=== PATIENT | female | born 2000 | race American Indian/Alaskan Native ===

== ENCOUNTER 2019-04-30 14:53 | Emergency (ER) | payer SELFPAY ==
[2019-04-30 15:36] VITALS: BP 104/75
[2019-04-30] MEDS ORDERED: ONDANSETRON 4 MG ODT TAB ONE (16:18)
--- NOTE | 2019-04-30 16:18 | Event Note ---
ED Screening Note Date of service: 04/30/18 Time: 16:12 ED Screening Note: Pt complains of dizziness, chest pain, and weakness x 1 week hx of DVT, not currently on blood thinners denies recent long travel +LLE tenderness LMP 04/16/19 +N/V This initial assessment/diagnostic orders/clinical plan/treatment(s) is/are subject to change based on patients health status, clinical progression and re- assessment by fellow clinical providers in the ED. Further treatment and workup at subsequent clinical providers discretion. Patient/guardian urged not to elope from the ED as their condition may be serious if not clinically assessed and managed. Initial orders include: labs CXR meds
[2019-04-30 17:06] LABS: Hematocrit 36.8 % (30.3-42.9); Hemoglobin 12.1 gm/dl (10.1-14.3); Mean Corpuscular HGB Conc 33 % (30-34); Mean Corpuscular Volume 84 fl (79-97); Platelet Count 198 K/mm3 (140-440); Red Blood Count 4.37 M/mm3 (3.65-5.03); Red Cell Distribution Width 14.3 % (13.2-15.2)
[2019-04-30 17:15] LABS: Alanine Aminotransferase 8 units/L (7-56); Albumin 4.6 g/dL (3.9-5); BUN/Creatinine Ratio 10; Blood Urea Nitrogen 7 mg/dL (7-17); Calcium 9.3 mg/dL (8.4-10.2); Hemolysis Index 9
--- NOTE | 2019-04-30 18:49 | XRay Report ---
CHEST 2 VIEWS INDICATION / CLINICAL INFORMATION: chest pain, SOB. COMPARISON: None available. FINDINGS: SUPPORT DEVICES: None. HEART / MEDIASTINUM: No significant abnormality. LUNGS / PLEURA: No significant pulmonary or pleural abnormality. .No pneumothorax. ADDITIONAL FINDINGS: No significant additional findings. IMPRESSION: 1. No acute findings. Signer Name: Tam Da Silva MD Signed: 04/30/2019 6:45 PM Workstation Name: [id number]
[2019-04-30] MEDS ORDERED: KETOROLAC 30 MG/1 ML INJ IV ONE (19:31)
[2019-04-30] MEDS ORDERED: ONDANSETRON 4 MG/2 ML INJ IV ONE (19:31)
--- NOTE | 2019-04-30 20:32 | Emergency Department Report ---
ED General Adult HPI - General Chief complaint: Weakness Stated complaint: N/V/HEADACHE/WEAKNESS/BLURRY VISION Time Seen by Provider: 04/30/19 16:11 Source: patient Mode of arrival: Ambulatory Limitations: No Limitations - History of Present Illness Initial comments: This is a 19-year-old female who presents to ED complaining of fatigue, nausea vomiting for the past 3 weeks. Patient has also been having a throbbing intermittent headache for the past week. Patient states she's been having shortness of breath with sharp intermittent mid chest pain for the past month. Patient states that shortness of breath is worse with walking. Patient also states that from time to time she gets some small swollen feet and lateral. 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 Patient states she does have a history of a DVT last year after child . He denies fevers/chills/abdominal pain or urinary symptoms Radiation: non-radiation Severity scale (0 -10): 6 - Related Data Previous Rx's Medication Instructions Recorded Last Taken Type ALBUTEROL Inhaler (OR & NICU) 2 puff IH QID PRN #1 inhalation 04/30/19 Unknown Rx [ProAir HFA Inhaler] Prochlorperazine [Compazine] 10 mg PO Q8HR #30 tablet 04/30/19 Unknown Rx Allergies Allergy/AdvReac Type Severity Reaction Status Date / Time shellfish derived Allergy Hives Verified 04/30/19 15:02 ED Review of Systems ROS: Stated complaint: N/V/HEADACHE/WEAKNESS/BLURRY VISION Other details as noted in HPI Comment: All other systems reviewed and negative ED Past Medical Hx - Past Medical History Previous Medical History?: Yes Hx Asthma: Yes - Surgical History Past Surgical History?: No - Social History Smoking Status: Never Smoker Substance Use Type: None - Medications Home Medications: Home Medications Medication Instructions Recorded Confirmed Last Taken Type ALBUTEROL Inhaler (OR & NICU) 2 puff IH QID PRN #1 inhalation 04/30/19 Unknown Rx [ProAir HFA Inhaler] Prochlorperazine [Compazine] 10 mg PO Q8HR #30 tablet 04/30/19 Unknown Rx ED Physical Exam - General Limitations: No Limitations General appearance: alert, in no apparent distress - Head Head exam: Present: atraumatic, normocephalic - Eye Eye exam: Present: normal appearance, PERRL Pupils: Present: normal accommodation - ENT ENT exam: Present: mucous membranes moist - Neck Neck exam: Present: normal inspection - Respiratory Respiratory exam: Present: normal lung sounds bilaterally. Absent: respiratory distress - Cardiovascular Cardiovascular Exam: Present: regular rate, normal rhythm. Absent: systolic murmur, diastolic murmur, rubs, gallop - GI/Abdominal GI/Abdominal exam: Present: soft, normal bowel sounds - Extremities Exam Extremities exam: Present: normal inspection, full ROM, tenderness, other (nereida sign negative bilaterally). Absent: joint swelling, calf tenderness - Back Exam Back exam: Present: normal inspection - Neurological Exam Neurological exam: Present: alert, oriented X3, normal gait - Expanded Neurological Exam Expanded Patient oriented to: Present: person, place, time Speech: Present: fluid speech Cerebellar function: Finger to Nose: Normal Motor strength exam: RUE: 5, LUE: 5, RLE: 5, LLE: 5 Best Eye Response ([place]): (4) open spontaneously Best Motor Response ([place]): (6) obeys commands Best Verbal Response ([place]): (5) oriented [place] Total: 15 - Psychiatric Psychiatric exam: Present: normal affect, normal mood - Skin Skin exam: Present: warm, dry, intact, normal color. Absent: rash ED Course Vital Signs 04/30/19 04/30/19 15:04 19:50 Temperature 98.5 F Pulse Rate 75 Respiratory 16 18 Rate Blood Pressure 104/75 O2 Sat by Pulse 96 Oximetry ED Medical Decision Making - Lab Data Result diagrams: 04/30/19 16:39 04/30/19 16:38 Laboratory Last Values WBC 3.9 K/mm3 (4.5-11.0) L 04/30/19 16:39 RBC 4.37 M/mm3 (3.65-5.03) 04/30/19 16:39 Hgb 12.1 gm/dl (10.1-14.3) 04/30/19 16:39 Hct 36.8 % (30.3-42.9) 04/30/19 16:39 MCV 84 fl (79-97) 04/30/19 16:39 MCH 28 pg (28-32) 04/30/19 16:39 MCHC 33 % (30-34) 04/30/19 16:39 RDW 14.3 % (13.2-15.2) 04/30/19 16:39 Plt Count 198 K/mm3 (140-440) 04/30/19 16:39 D-Dimer 252.27 ng/mlDDU (0-234) H 04/30/19 16:38 Sodium 138 mmol/L (137-145) 04/30/19 16:38 Potassium 3.6 mmol/L (3.6-5.0) 04/30/19 16:38 Chloride 102.0 mmol/L (98-107) 04/30/19 16:38 Carbon Dioxide 23 mmol/L (22-30) 04/30/19 16:38 Anion Gap 17 mmol/L 04/30/19 16:38 BUN 7 mg/dL (7-17) 04/30/19 16:38 Creatinine 0.7 mg/dL (0.7-1.2) 04/30/19 16:38 Estimated GFR > 60 ml/min 04/30/19 16:38 BUN/Creatinine Ratio 10 % 04/30/19 16:38 Glucose 81 mg/dL (65-100) 04/30/19 16:38 Calcium 9.3 mg/dL (8.4-10.2) 04/30/19 16:38 Total Bilirubin 0.70 mg/dL (0.1-1.2) 04/30/19 16:38 AST 18 units/L (5-40) 04/30/19 16:38 ALT 8 units/L (7-56) 04/30/19 16:38 Alkaline Phosphatase 50 units/L (35-129) 04/30/19 16:38 Troponin T < 0.010 ng/mL (0.00-0.029) 04/30/19 16:38 Total Protein 7.8 g/dL (6.3-8.2) 04/30/19 16:38 Albumin 4.6 g/dL (3.9-5) 04/30/19 16:38 Albumin/Globulin Ratio 1.4 % 04/30/19 16:38 HCG, Qual Negative (Negative) 04/30/19 16:32 Urine Color Yellow (Yellow) 04/30/19 Unknown Urine Turbidity Clear (Clear) 04/30/19 Unknown Urine pH 5.0 (5.0-7.0) 04/30/19 Unknown Ur Specific [place] 1.015 (1.003-1.030) 04/30/19 Unknown Urine Protein <15 mg/dl mg/dL (Negative) 04/30/19 Unknown Urine Glucose (UA) Neg mg/dL (Negative) 04/30/19 Unknown Urine Ketones Tr mg/dL (Negative) 04/30/19 Unknown Urine Blood Neg (Negative) 04/30/19 Unknown Urine Nitrite Neg (Negative) 04/30/19 Unknown Urine Bilirubin Neg (Negative) 04/30/19 Unknown Urine Urobilinogen < 2.0 mg/dL (<2.0) 04/30/19 Unknown Ur Leukocyte Esterase Neg (Negative) 04/30/19 Unknown Urine WBC (Auto) < 1.0 /HPF (0.0-6.0) 04/30/19 Unknown Urine RBC (Auto) 2.0 /HPF (0.0-6.0) 04/30/19 Unknown U Epithel Cells (Auto) 1.0 /HPF (0-13.0) 04/30/19 Unknown Urine Bacteria (Auto) 1+ /HPF (Negative) 04/30/19 Unknown Urine Mucus Few /HPF 04/30/19 Unknown - Radiology Data Radiology results: report reviewed, image reviewed Indication: ,Shortness of breath, elevated d-dimer Technique: TECHNIQUE: Axial CT images were obtained through the chest after injection of 100 cc of Omnipaque 350 IV contrast. 3 plane MIP reconstructions were produced. All CT scans at this location are performed using CT dose reduction for ALARA by means of automated exposure control. COMPARISON: None Automatic exposure control was utilized in an attempt to reduce radiation dose. Findings: Pulmonary arteries: The main pulmonary artery and right and left pulmonary artery branches fill satisfactorily with contrast. No pulmonary embolus is seen. Lungs: The lungs are clear. Mediastinum: Heart size is normal. No adenopathy is seen. Aorta: Normal in diameter. No dissection seen within limits of this exam. Impression: No pulmonary embolus is seen Signer Name: Tam Da Silva MD Signed: 04/30/2019 8:28 PM Workstation Name: [id number] Transcribed By: Dictated By: Tam Da Silva MD Electronically Authenticated By: Tam Da Silva MD Signed Date/Time: 04/30/192027 - Medical Decision Making This is a 19-year-old female who presents with migraine headache. Patient was also complaining of lower leg pain that history of DVT a year ago so d-dimer was collected. Labs within normal limits. Elevated d-dimer, CTA of the chest was negative for DVT Discussed all findings with the patient. Patient received Toradol and Zofran in the ED. Patient was not in any acute distress. She was referred to cardiology to be examined. discussed with patient to also follow up with the primary care physician within 3-5 days. Critical care attestation.: If time is entered above; I have spent that time in minutes in the direct care of this critically ill patient, excluding procedure time. ED Disposition Clinical Impression: Migraine headache with aura, Atypical chest pain Disposition: TO HOME OR SELFCARE Is pt being admited?: No Does the pt Need Aspirin: No Condition: Stable Instructions: Chest Pain (ED), Costochondritis (ED), Migraine Headache (ED) Additional Instructions: Make sure to follow up with the primary care physician as discussed. Take all your medications as you've been prescribed. If you have any worsening symptoms or develop new symptoms please return to ED immediately. Prescriptions: Prochlorperazine [Compazine] 10 mg PO Q8HR #30 tablet ALBUTEROL Inhaler (OR & NICU) [ProAir HFA Inhaler] 2 puff IH QID PRN #1 inhalation PRN Reason: Shortness Of Breath Referrals: MARY POWELL MD [Primary Care Provider] - 3-5 Days [facility] [Outside] - 3-5 Days [facility] [Provider Group] - 3-5 Days JUDY BENÍTEZ MD [Staff Physician] - 3-5 Days Forms: Work/School Release Form(ED) Time of Disposition: 21:38
[2019-04-30 20:48] LABS: Bacteria,Urine 1+ /HPF (Negative); Bilirubin,Urine NEG (Negative); Blood,Urine NEG (Negative); Color,Urine Yellow (Yellow); Mucus,Urine FEW /HPF; Protein,Urine <15 mg/dL mg/dL (Negative); Urobilinogen,Urine < 2.0 mg/dL (<2.0); WBC,Urine < 1.0 /HPF (0.0-6.0)
== END 2019-04-30 22:20 | disposition home or self-care (01) ==
LOC: ED 14:53
DX: G43.109 Migraine with aura, not intractable, without status migrainosus (principal); R07.89 Other chest pain; M79.662 Pain in left lower leg; J45.909 Unspecified asthma, uncomplicated; Z79.899 Other long term (current) drug therapy; Z91.013 Allergy to seafood
CPT/HCPCS: 36415; 71046; 71275; 80053; 81001; 84484; 84703; 85027; 85379; 96374; 96375; 99284; J1885; J2405; Q9967; Q0162